=== PATIENT | female | born 1965 | race Caucasian/White ===

== ENCOUNTER 2021-12-17 22:23 | Emergency (ER) | payer OTHER ==
[2021-12-17] MEDS ORDERED: Ketorolac 30 MG/ML SDV IM ONE (23:06)
[2021-12-17] MEDS ORDERED: Orphenadrine 100 MG Tab.ER ONE (23:17)
[2021-12-18] MEDS ORDERED: Orphenadrine 100 MG Tab.ER PO ONE (23:07)
== END 2021-12-18 00:36 | disposition home or self-care (01) ==
LOC: JD.ED 22:23
DX: S39.012A Strain of muscle, fascia and tendon of lower back, initial encounter (principal); I10 Essential (primary) hypertension; E10.9 Type 1 diabetes mellitus without complications; Z79.899 Other long term (current) drug therapy; X50.0XXA Overexertion from strenuous movement or load, initial encounter
CPT/HCPCS: 72100; 96372; 99283; A9270; J1885